=== PATIENT | male | born 1995 | race Caucasian/White ===

== ENCOUNTER 2017-04-09 22:17 | Emergency (ER) | payer OTHER ==
[~2017-04-09] VITALS: Ht 177.8 cm; Wt 96.2 kg
[2017-04-10] MEDS ORDERED: KETOROLAC 60 MG/2 ML VIAL IM ONE (01:00)
[2017-04-10] MEDS ORDERED: HYDROcodone/APAP 5 MG/325 MG (LORTAB) TAB PO ONE (01:00)
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
[2017-04-10] MEDS ORDERED: HYDR-3812 PO (01:15)
[2017-04-10 01:18] VITALS: BP 142/88
--- OUTSIDE RECORDS SUMMARY | 2017-04-10 02:46 | XMS REPORT | Continuity of Care Document ---
Author Author [facility] Address Unknown Phone Unavailable Allergies Medications Problems Date Dx Coded Attending Type Code Diagnosis Diagnosed By 09/22/2011 JADA MITCHELL APRN 930.9 FOREIGN BODY - LEFT EYE 08/06/2014 JADA MITCHELL APRN 461.9 SINUSITIS ACUTE Procedures Results Encounters ACCT No. Visit Date/Time Discharge Status Pt. Type Provider Facility Loc./Unit Complaint [id number] 08/06/2014 11:00:00 08/06/2014 23: 59:59 CLS Outpatient JADA MITCHELL APRN
--- NOTE | 2017-04-10 08:35 | Diagnostic Imaging Report ---
INDICATION: Clavicle fracture COMPARISON: None FINDINGS: 3 views of the left shoulder demonstrate minimally angulated nondisplaced left clavicle fracture in the midshaft. There is a no additional fracture or dislocation. AC and glenohumeral joints are intact. IMPRESSION: Midshaft clavicle fracture. Dictated by: Dictated on workstation # [id number]
--- NOTE | 2017-04-10 08:47 | Diagnostic Imaging Report ---
INDICATION: Right knee injury, pain COMPARISON: None FINDINGS: 3 views of the right knee demonstrate no fracture or dislocation. The articular surfaces are normal. No joint effusion. IMPRESSION: Negative right knee Dictated by: Dictated on workstation # [id number]
--- NOTE | 2017-04-10 08:52 | Diagnostic Imaging Report ---
INDICATION: Left shoulder injury, clavicle pain. COMPARISON: None. FINDINGS: Two views of the left clavicle demonstrate a nondisplaced midshaft left clavicle fracture. The AC and glenohumeral joints are intact. IMPRESSION: Mid shaft left clavicle fracture without malalignment. Dictated by: Dictated on workstation # [id number]
== END 2017-04-10 01:18 | disposition home or self-care (01) ==
LOC: EDUNIT# 22:17 → ER 22:20
DX: S42.025A Nondisplaced fracture of shaft of left clavicle, initial encounter for closed fracture (principal); S83.91XA Sprain of unspecified site of right knee, initial encounter; V86.09XA Driver of other special all-terrain or other off-road motor vehicle injured in traffic accident, initial encounter
CPT/HCPCS: 73000; 73030; 73562; 96372; 99284

== ENCOUNTER → 2017-04-15 | Outpatient (CLI) | payer OTHER ==
[~2017-04-15] MED LIST: HYDR-3812 PO
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
== END ==
LOC: RAD 15:34
PROVIDERS: ATTEND Nurse Practitioner
DX: S83.281A Other tear of lateral meniscus, current injury, right knee, initial encounter (principal); S86.811A Strain of other muscle(s) and tendon(s) at lower leg level, right leg, initial encounter; M25.461 Effusion, right knee; V28.4XXA Motorcycle driver injured in noncollision transport accident in traffic accident, initial encounter; Y99.8 Other external cause status
CPT/HCPCS: 73721